=== PATIENT | male | born 1945 | race Caucasian/White ===

== ENCOUNTER 2016-11-26 19:02 | Observation (INO) | payer OTHER ==
--- NOTE | ~2016-11-26 | HP ---
History And Physical [address] [facility] [place]. [address] NAME: GHASSAN ANNE : 41 STATUS : ADM Tee PAT#: [id number] AGE: 71 ADM/REG DATE : 11/26/16 MR#: [id number] REPORT SERV DATE: 11/27/16 DICTATED BY: FLORESITA HI DATE: 11/27/16 REPORT STATUS : Draft TRANSCRIBED BY: MODTamy DATE: 11/27/16 DATE OF ADMISSION: 11/26/2016 STRUCTURAL STEEL DETAILER: Kenneth Vallejo M.D. LITHOGRAPHIC PLATE MAKER APPRENTICE: Dr. Chace Mcneil. CHIEF COMPLAINT: Substernal chest pain with exertional component. HISTORY OF PRESENT ILLNESS: A very pleasant, somewhat hard of hearing, 71-year-old white gentleman with self-reported history of CAD, reportedly identified by cath approximately one year ago by Dr. Vallejo. The patient reports he has a "total blockage with feeders" of an unknown vessel, but confirms he has never had any intervention or stents placed. The patient states that for the past two days, he has experienced episodes of midsternal chest discomfort, which he initially thought was indigestion. On 11/26/2016, he had similar discomfort in the morning and later in the day when he was running into the [facility] through the rain, he again developed a substernal chest heaviness with associated shortness of breath, nausea, "cold chills," and belching. He denies dizziness with that event, although he reports recent episodes of dizziness. At its most intense, he rates the chest discomfort an 8/10. At time of interview in the [facility], he rates it a 3/10. The patient believes he may have had a heart attack in the past, also history of lower extremity DVT in 1982. Denies history of stroke or PE. The patient denies any recent fever or chills. No palpitations. No syncopal episodes. Denies PND or orthopnea. PAST MEDICAL HISTORY: 1. Reports CAD as "total blockage with feeders" of unknown vessel, followed by Dr. Vallejo. 2. Hypertension. 3. Dyslipidemia. 4. AODM. 5. Pacemaker for bradycardia, followed by Dr. Chace Mcneil. PAST SURGICAL HISTORY: 1. Partial colectomy. 2. Right hand surgery. 3. Tonsillectomy. 4. Dual-chamber pacemaker implanted in [place], [place], approximately 10 years ago followed by Dr. Chace Mcneil. SOCIAL HISTORY: He is , with three daughters. 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 Does not have a structured exercise routine, but walks around for 20 or 30 minutes multiple times daily. Denies tobacco, alcohol, or illicits. FAMILY HISTORY: No embolic events reported in first-degree relatives. Mother of a History And Physical [facility] [address] [place]. [address] NAME: GHASSAN ANNE : 41 STATUS : ADM Tee PAT#: [id number] AGE: 71 ADM/REG DATE : 11/26/16 MR#: [id number] REPORT SERV DATE: 11/27/16 DICTATED BY: FLORESITA HI DATE: 11/27/16 REPORT STATUS : Draft TRANSCRIBED BY: ANUSHA DATE: 11/27/16 brain tumor. Father with an "enlarged heart" and a history of hypertension. Brother with prostate cancer. REVIEW OF SYSTEMS: A 14-point review of systems performed, significant for HPI including the patient states he had an arteriogram approximately one year ago by Dr. Vallejo at [facility]. Otherwise, complete review of systems obtained and negative. ALLERGIES: HYDROCODONE CAUSES ITCHING. HOME MEDICINES: Aspirin 81 mg daily; Prozac 10 mg daily (ran out several weeks ago); Imdur 30 mg daily, ran out four to five weeks; metformin 500 mg daily; metoprolol succinate 50 mg daily; Zocor 20 mg daily; and Flomax 0.4 mg daily (ran out x1 week). PHYSICAL EXAMINATION: BLOOD PRESSURE: Bilateral blood pressures on arrival; right 155/79, left 139/68, this morning 135/73. PULSE: 79. RESPIRATORY RATE: 16. TEMPERATURE: 97.7. O2 saturation 96% on room air. HEIGHT: 5 feet 8 inches. WEIGHT: 285 pounds. BMI 43.3. GENERAL: Kidder of hearing, bilateral hearing aids. HEENT: Pupils 2 mm, sclera nonicteric. Nares patent. Moist mucous membranes. No xanthelasma. NECK: Trachea midline, no thyromegaly. No JVD. No bruits. LYMPH: No cervical lymphadenopathy. No supraclavicular lymphadenopathy. RESPIRATORY: Unlabored respirations. Breath sounds clear bilaterally to posterior auscultation. No wheezes or rhonchi. CARDIOVASCULAR: Regular rate. No murmur, rub or gallop appreciated. Extremities without edema. Pulses 2+ bilaterally. ABDOMEN: Soft, nontender, nondistended, normal bowel sounds auscultated throughout. No organomegaly. Obese and with no organomegaly appreciated. SKIN: Warm, dry extremities. No pallor, or cyanosis. PSYCHIATRIC: Appropriate affect. Alert, oriented x3. LABORATORY DATA: Troponin less than 0.02 x3. Potassium 4.6, BUN 19, creatinine 1.30, glucose 111, magnesium 2.1. BNP 45.4. WBC 7.0, hemoglobin 13.6, hematocrit 40.2, platelet count 227,000. D-dimer 0.32. EKG, atrial paced LAD. ASSESSMENT AND PLAN: 1. Substernal chest pain with exertional component. The patient has been observed in the CP and identified as an established Dr. Kenneth Vallejo' patient. The patient will be transferred to Dr. Vallejo' service to be followed Dr. Gretchen Walton during this admission. Dr. Walton has been contacted and accepted this patient with request to proceed with a stress test today. Further recommendations coming from Dr. Walton. 2. Reported coronary artery disease as "total blockage of unknown vessel [place] [address]." The patient will be asked to follow up with Dr. Vallejo in four weeks and continue his established home meds. 3. Hypertension, monitor blood pressure and continue home meds. 4. Dyslipidemia, continue statin. 5. Adult-Onset Diabetes Mellitus, hold metformin level one sliding scale correction. History And Physical [address] [address] NAME: GHASSAN ANNE : 41 STATUS : ADM Tee PAT#: [id number] AGE: 71 ADM/REG DATE : 11/26/16 MR#: [id number] REPORT SERV DATE: 11/27/16 DICTATED BY: FLORESITA HI DATE: 11/27/16 REPORT STATUS : Draft TRANSCRIBED BY: MODL DATE: 11/27/16 6. Medical noncompliance. The patient seemingly ran out of several of his prescriptions. We will provide one-month prescription for cardiac meds including Imdur, Toprol-XL, and Zocor. Otherwise, the patient will be asked to follow up with PCP and Dr. Vallejo to re-establish with other medication. CHERRY/ANUSHA SHELBY Cole, [employer]TER [employer]OWER-BC / [id number] CC: SHELBY Cole, [employer]TER [employer]-BC Shamika Dawn M.D.
--- NOTE | ~2016-11-26 | HP ---
History And Physical [address] [place]. [address] NAME: GHASSAN ANNE : 41 STATUS : DIS Tee PAT#: [id number] AGE: 71 ADM/REG DATE : 11/26/16 MR#: [id number] REPORT SERV DATE: 11/27/16 DICTATED BY: GLORIA WALTON JR. DATE: 11/27/16 REPORT STATUS : Draft TRANSCRIBED BY: ANUSHA DATE: 11/27/16 DATE OF ADMISSION: 11/26/2016 CHIEF COMPLAINT: Chest pain. HISTORY OF PRESENT ILLNESS: The patient is a 71-year-old white male with history of known coronary artery disease, followed by Dr. Gallo Vallejo with a recent cardiac catheterization performed in March with non-flow limiting epicardial coronary artery disease chiefly involving the LAD and circumflex with 100% right coronary artery for which Dr. Vallejo attempted PCI of the mid right coronary artery with no flow noted at the end of the procedure. He has extensive hetero-collaterals from the distal left supplying the posterolateral and PDA vessels and presents today after running out of his isosorbide at home for the past week and a half and missing his appointment with Dr. Vallejo. Upon running in the rain last evening, he developed angina which cleared with rest. He had been experiencing no angina but had been taking his Imdur as prescribed prior to his running of the prescription. He notes no other issues. Nuclear stress test performed today revealed normal perfusion with ejection fraction of 59% and no regional wall motion abnormality. REVIEW OF SYSTEMS: A 10-point review of systems, otherwise, unremarkable. ALLERGIES: TO HYDROCODONE. MEDICATIONS: Include 1. Aspirin 81 mg daily. 2. Prozac 10 mg daily. 3. Imdur 30 mg daily, currently out of. 4. Metformin 500 mg daily. 5. Toprol-XL 50 mg daily for which his family member states that he also has not been taking but this is questionable. 6. Simvastatin 20 mg at bedtime. 7. Flomax 0.4 mg daily. PAST MEDICAL HISTORY: Significant for history of known epicardial coronary disease, history of prior myocardial infarction, obstructive sleep apnea on no CPAP, history of sick sinus syndrome, history of carpal tunnel syndrome, chronic sinusitis, obesity with sensorineural hearing loss, hiatal hernia, and diabetes mellitus. PAST SURGICAL HISTORY: Notable for a prior [employer] pacemaker implantation, history of carpal tunnel release, colonoscopy, and hiatal hernia surgery. SOCIAL HISTORY: Notable for absence of tobacco or ethanol use. FAMILY HISTORY: Notable for heart disease. PHYSICAL EXAMINATION: History And Physical [address] [place]. [address] NAME: GHASSAN ANNE : 41 STATUS : DIS Tee PAT#: [id number] AGE: 71 ADM/REG DATE : 11/26/16 MR#: [id number] REPORT SERV DATE: 11/27/16 DICTATED BY: GLORIA WALTON JR. DATE: 11/27/16 REPORT STATUS : Draft TRANSCRIBED BY: ANUSHA DATE: 11/27/16 VITAL SIGNS: Blood pressure is approximately 139/68 mmHg, pulse is 81 and regular, respirations 14, and the patient is afebrile. HEENT: Unremarkable. NECK: Supple without jugular venous distention. CARDIOVASCULAR SYSTEM: Regular rhythm. LUNGS: Clear. ABDOMEN: Benign without hepatomegaly. EXTREMITIES: 1+ with no pedal edema. NEUROLOGIC: He is grossly intact. LABORATORY DATA: EKG is notable for sinus rhythm with delayed R-wave progression, otherwise normal tracing. Sodium 142, potassium 4.6, BUN 19, creatinine 1.3, magnesium 2.1, and calcium 8.8. H and H 13.6 and 40.2, platelet count 227,000. Chest x-ray is otherwise unremarkable. IMPRESSION: A 71-year-old white male with history of known epicardial coronary artery disease, history of hypertension, history of obesity, history of known obstructive sleep apnea, currently off nitrates with class 1 angina. PLAN AND RECOMMENDATIONS: 1. Resume nitrates at the current dose. 2. Resume beta blockade therapy. 3. Discharge home with a followup with Dr. Vallejo in the office. /ANUSHA Gloria Walton Jr., M.D. / [id number] CC: Shamika Reddy M.D.
[2016-11-26 17:51] LABS: BASOPHILS 0.4 %; BASOPHILS ABSOLUTE 0.03 10/3/uL (0.0-0.16); EOSINOPHILS 2.1 %; EOSINOPHILS ABSOLUTE 0.15 10/3/uL (0.0-0.53); ER CBC TAT 0 Hrs 07 Mins; HEMOGLOBIN 13.6 g/dL (13.6-17.8); IMMATURE GRANULOCYTES 0.4 %; IMMATURE GRANULOCYTES ABSOLUTE 0.03 10/3/uL (0.0-0.11); LYMPHOCYTES 37.8 %; LYMPHOCYTES ABSOLUTE 2.64 10/3/uL (0.67-4.30); MEAN CORPUS HGB CONC 33.8 g/dL (32.0-36.0); MEAN CORPUSCULAR HEMOGLOB 30.7 pg (26.0-34.0); MEAN CORPUSCULAR VOLUME 90.7 fL (80-100); MEAN PLATELET VOLUME 10.2 fL (9.2-13.0); MONOCYTES 7.7 %; MONOCYTES ABSOLUTE 0.54 10/3/uL (0.21-1.20); NEUTROPHILS 51.6 %; NEUTROPHILS ABSOLUTE 3.59 10/3/uL (2.02-8.40); PLATELET COUNT 227 10/3/uL (150-400); RBC DISTRIBUTION WIDTH 13.6 % (12.0-16.0); RED CELL COUNT 4.43 10/6/uL (4.7-6.1)
[2016-11-26 17:52] LABS: HEMATOCRIT 40.2 % (40.0-51.0); MANUAL DIFF NO %
[2016-11-26 18:01] LABS: INTERNATIONAL NORMAL RATI 1.3 UNITS (-); PARTIAL THROMBO TIME 32.5 SEC (22.5-37.2)
[2016-11-26 18:04] LABS: D-DIMER QUANTITATIVE 0.32 ug/mLFEU (< 0.50)
[2016-11-26 18:12] LABS: BUN (BLOOD UREA NITROGEN) 20 MG/DL (6-23); CALCIUM, SERUM 8.6 MG/DL (8.5-10.4); CHEST PAIN PROFILE TAT 0 Hrs 28 Mins; CHLORIDE, SERUM 107 MMOL/L (96-112); CO2 (CARBON DIOXIDE) 29 MMOL/L (24-34); CREATININE 1.16 MG/DL (0.70-1.30); GFR AFRICAN AMERICAN 72 ML/MIN (>=60); GFR NON AFRICAN AMERICAN 62 ML/MIN (>=60); GLUCOSE, SERUM 112 MG/DL (60-99); POTASSIUM, SERUM 3.8 MMOL/L (3.5-5.3); SODIUM, SERUM 141 MMOL/L (135-148); TROPONIN I <0.02 NG/ML (<0.05)
[~2016-11-26 19:02] MED LIST: ADVIL PO
[2016-11-26] MEDS ORDERED: ZOCOR20 PO (20:20)
[2016-11-26] MEDS ORDERED: TOPXL50 PO (20:20)
[2016-11-26] MEDS ORDERED: FORTAMET500 MG PO (20:23)
[2016-11-26] MEDS ORDERED: ASAB PO (20:23)
[2016-11-26] MEDS ORDERED: IMDUR30 PO (20:24)
[2016-11-26] MEDS ORDERED: PROZ10 PO (20:24)
[2016-11-26] MEDS ORDERED: FLOMAX4 PO (20:25)
[2016-11-27 05:54] LABS: BUN (BLOOD UREA NITROGEN) 19 MG/DL (6-23); CALCIUM, SERUM 8.8 MG/DL (8.5-10.4); CHLORIDE, SERUM 108 MMOL/L (96-112); CO2 (CARBON DIOXIDE) 28 MMOL/L (24-34); GFR AFRICAN AMERICAN 63 ML/MIN (>=60); GFR NON AFRICAN AMERICAN 54 ML/MIN (>=60); GLUCOSE, SERUM 111 MG/DL (60-99); SODIUM, SERUM 142 MMOL/L (135-148)
[2016-11-27 05:57] LABS: POTASSIUM, SERUM 4.6 MMOL/L (3.5-5.3)
== END 2016-11-27 14:53 | disposition home or self-care (01) ==
LOC: ER 19:02 → CDU1 19:34 → CDU2 20:20 → CDU1 21:22
PROVIDERS: Clinical Nurse Specialist; Nurse Practitioner Family
DX: R07.2 Precordial pain (principal); I25.10 Atherosclerotic heart disease of native coronary artery without angina pectoris; I25.2 Old myocardial infarction; I10 Essential (primary) hypertension; E78.5 Hyperlipidemia, unspecified; E11.9 Type 2 diabetes mellitus without complications; G47.33 Obstructive sleep apnea (adult) (pediatric); I49.5 Sick sinus syndrome; R00.1 Bradycardia, unspecified; E66.9 Obesity, unspecified; Z68.41 Body mass index [BMI] 40.0-44.9, adult; Z95.0 Presence of cardiac pacemaker; Z90.49 Acquired absence of other specified parts of digestive tract; Z98.890 Other specified postprocedural states; Z88.5 Allergy status to narcotic agent; Z79.82 Long term (current) use of aspirin; Z79.84 Long term (current) use of oral hypoglycemic drugs; Z79.899 Other long term (current) drug therapy
CPT/HCPCS: 71010; 73610-RT; 78452; 80048; 82962; 83690; 83735; 83880; 84484; 85025; 85379; 85610; 85730; 93005; 93017; 96374; 99285; A9270-GY; A9502; G0378; J0153; J2405